=== PATIENT | female | born 1965 | race American Indian/Alaskan Native ===

== ENCOUNTER 2017-01-05 10:46 | Inpatient (IN) | payer MEDICAID ==
[2017-01-05 10:46] VITALS: BMI 51.3
--- NOTE | 2017-01-05 11:09 | C.PDOC ---
History Of Present Illness Patient is a 51 year old female, whose past medical history includes diabetes, and Hidradenitis suppurativa, is sent to the Emergency Department for evaluation of abscess and cellulitis to right axilla. Patient was sent from Dr. Dunn office for ED management and admission. Otherwise, patient denies any sensory changes, headache, fever, chills, or any other associated symptoms at this time. Time Seen by Provider: 01/05/17 11:05 Chief Complaint (Nursing): Medical Clearance History Per: Patient History/Exam Limitations: no limitations Onset/Duration Of Symptoms: Days Current Symptoms Are (Timing): Still Present Severity: Moderate Reports Recently: Treated By A Physician Recent travel outside of the [place]: No Additional History Per: Patient Past Medical History Reviewed: Historical Data, Nursing Documentation, Vital Signs Vital Signs: Last Vital Signs Temp 97.5 F L 01/05/17 10:51 Pulse 102 H 01/05/17 10:51 Resp 20 01/05/17 10:51 BP 133/83 01/05/17 10:51 Pulse Ox 98 01/05/17 11:40 - Medical History PMH: Arthritis, HTN, Hypercholesterolemia Denies: Chronic Kidney Disease - [facility] Procedures DRAINAGE OF LEFT AXILLA, OPEN APPROACH (02/25/16) DRAINAGE OF LEFT AXILLA, OPEN APPROACH, DIAGNOSTIC (02/25/16) DRAINAGE OF R UP ARM SUBCU/FASCIA, OPEN APPROACH (03/05/15) TRANSFER R UP ARM SUBCU/FASCIA W SKIN, SUBCU, OPEN (03/05/15) Family History: States: Unknown Family Hx - Social History Hx Alcohol Use: No Hx Substance Use: No - Immunization History Hx Tetanus Toxoid Vaccination: No Hx Influenza Vaccination: No Hx Pneumococcal Vaccination: No Review Of Systems Except As Marked, All Systems Reviewed And Found Negative. Constitutional: Negative for: Fever, Chills Cardiovascular: Negative for: Chest Pain, Palpitations Respiratory: Negative for: Shortness of Breath Gastrointestinal: Negative for: Nausea, Vomiting Musculoskeletal: Negative for: Neck Pain Skin: Positive for: Other (abscess to right axilla) Neurological: Negative for: Weakness, Numbness, Headache Physical Exam - Physical Exam Appears: Non-toxic, No Acute Distress, Other (morbidly obese) Skin: Warm, Dry, Other (multiple healed incision to bilateral axilla; large tender fluctuant area to right axilla) Head: Atraumatic, Normacephalic Eye(s): bilateral: Normal Inspection Oral Mucosa: Moist Neck: Normal ROM, Supple Cardiovascular: Rhythm Regular, No Murmur Respiratory: Normal Breath Sounds, No Rales, No Rhonchi, No Wheezing Gastrointestinal/Abdominal: Soft, No Tenderness Extremity: Normal ROM, Capillary Refill (<2sec.), No Deformity Neurological/Psych: Oriented x3, Normal Speech, Normal Motor, Normal Sensation ED Course And Treatment O2 Sat by Pulse Oximetry: 98 (RA) Pulse Ox Interpretation: Normal Medical Decision Making Medical Decision Making: Impression: 51 y/o female, with PMHx of Hidradenitis suppurativa, is sent by PMD for evaluation of abscess and cellulitis to right axilla. Plan: * Blood work * EKG * CXR * Admit pt Progress note: On re-evaluation, patient is resting comfortably, no acute distress. Spoke with Dr. Dunn who requested full admission for further management. Patient was admitted to hospital for cellulitis, and abscess. Disposition Discussed With : Malcolm Dunn Doctor Will See Patient In The: Hospital Counseled Patient/Family Regarding: Studies Performed - Disposition Disposition: HOSPITALIZED Disposition Time: 11:15 Condition: STABLE - Clinical Impression Clinical Impression: Axillary abscess, Hidradenitis axillaris - Scribe Statement The provider has reviewed the documentation as recorded by the Clemencia Turcios All medical record entries made by the Layibcary were at my direction and personally dictated by me. I have reviewed the chart and agree that the record accurately reflects my personal performance of the history, physical exam, medical decision making, and the department course for this patient. I have also personally directed, reviewed, and agree with the discharge instructions and disposition. Decision To Admit - Pt Status Changed To: Hospital Disposition Of: Inpatient - Admit Certification Admit to Inpatient:: After my assessment, the patient will require hospitalization for at least two midnights. This is because of the severity of symptoms shown, intensity of services needed, and/or the medical risk in this patient being treated as an outpatient. - InPatient: Physician Admission Certification: I certify that this patient requires 2 or more midnights of care for the following reason:: patient for procedure as per MD - . Bed Request Type: Regular Patient Diagnosis: Axillary abscess, Hidradenitis axillaris
--- NOTE | 2017-01-05 11:29 | RAD ---
HISTORY: OR COMPARISON: None available. TECHNIQUE: Chest, one view. FINDINGS: Examination limited by habitus and hypoinflation. LUNGS: No focal consolidation. Please note that chest x-ray has limited sensitivity for the detection of pulmonary masses. PLEURA: No significant pleural effusion identified. No definite pneumothorax . CARDIOVASCULAR: Heart size appears within normal limits. OSSEOUS STRUCTURES: Mild degenerative changes. VISUALIZED UPPER ABDOMEN: Unremarkable. OTHER FINDINGS: None. IMPRESSION: Limited study. No acute findings.
[2017-01-05 11:54] LABS: BASO # 0.1 K/uL (0.0-0.2); BASO % 0.8 % (0.0-2.0); EOS # 0.2 K/uL (0.0-0.7); LYMPH # 2.4 K/uL (1.0-4.3); LYMPH % 34.1 % (20.0-40.0); MEAN CORPUSCULAR HEMOGLOBIN 27.7 pg (27.0-31.0); MEAN CORPUSCULAR HGB CONC 32.2 g/dL (33.0-37.0); MEAN PLATELET VOLUME 8.2 fL (7.2-11.7); MONO # 0.5 K/uL (0.0-0.8); MONO % 7.7 % (0.0-10.0); NRBC % 0.1 % (0.0-2.0); RED CELL DISTRIBUTION WIDTH 15.5 % (11.5-14.5); WHITE BLOOD COUNT 6.9 K/uL (4.8-10.8)
[2017-01-05 12:02] LABS: CHLORIDE 107 mmol/L (98-107); SODIUM 142 mmol/L (132-148)
[2017-01-05 12:05] LABS: BLOOD UREA NITROGEN 9 mg/dL (7-17); CARBON DIOXIDE 22 mmol/L (22-30); GFR AFRICAN-AMERICAN > 60; INR 1.1
[2017-01-05 12:06] LABS: CALCIUM 9.2 mg/dl (8.6-10.4); GLUCOSE,RANDOM 87 mg/dL (65-105)
[2017-01-05 12:08] LABS: POTASSIUM 4.3 mmol/L (3.6-5.2)
[2017-01-05] MEDS ORDERED: ceFAZolin IV 2 gm in Dextrose 1 GM/50 ML BAG IVPB ONE (13:42)
[2017-01-05] MEDS ORDERED: Bupivacaine HCl 0.25% PF (10 ml) Inj ONE (13:42)
[2017-01-05] MEDS ORDERED: Lidocaine 1% w Epi 1:100,000 Inj ONE (13:42)
[2017-01-05] MEDS ORDERED: Propofol 10 mg/ml Inj (20 ML) ONE ×2 (13:44→14:19)
[2017-01-05] MEDS ORDERED: Midazolam 2 MG/2 ML VIAL ONE (13:44)
[2017-01-05] MEDS ORDERED: Lactated Ringer's 1,000 ML IV ONE (14:00)
[2017-01-05] MEDS ORDERED: Oxycodone/Acetaminophen 5/325 mg Tab PO PRN (14:40)
[2017-01-05] MEDS ORDERED: Dextrose 5%/0.45% NS 1,000 ML IV SCH (14:45)
[2017-01-05] MEDS ORDERED: Morphine 4 MG/ML VIAL ONE (14:58)
--- NOTE | 2017-01-05 16:20 | CP.PCM.CON ---
History of Present Illness - History of Present Illness History of Present Illness: Consult note for Dr. Evans for medical management: 51 year old female with a past medical history of Hidradenitis suppurativa,, CAD , HTN, HLD, DJD, asthma (well controlled) presents S/P drainage of L axillary region by Dr. Dunn. She has no current complaints and states that the pain in her axilla is about a 3/10 post op. She denied Sheikh, change in vision, CP, SOB , numbness or weakness in the extremities. PMhx: CAD, HTN, HLD, DJD, asthma (well controlled), Hidradenitis suppurativa, PShx: abscess drainage Meds: Lipitor 40mg PO day, Topomax 50mg BID, ASA 81mg PO daily, Victoza 1.2 mg sc daily, Coreg 3.125 Allergies: seasonal Fam hx: mother CAD, [place] at , Father CVA Soc hx: smokes 5 cigarettes a day smoked for 20+ years, no ETOH, past heroin user (clean 4 years) PMD: Dr. Fernando Evans Cardiology: Dr. Eisenberg Surg: Dr. Dunn Review of Systems - Constitutional Constitutional: absent: Chills, Fever - EENT Eyes: absent: Blurred Vision, Change in Vision - Cardiovascular Cardiovascular: absent: Chest Pain, Chest Pain at Rest - Respiratory Respiratory: absent: Cough, Dyspnea, Dyspnea on Exertion - Gastrointestinal Gastrointestinal: absent: Abdominal Pain, Constipation, Diarrhea, Nausea, Vomiting - Genitourinary Genitourinary: absent: Change in Urinary Stream, Difficulty Urinating - Musculoskeletal Musculoskeletal: absent: Numbness, Tingling - Integumentary Integumentary: absent: Bleeding Lesions - Neurological Neurological: absent: Dizziness, Weakness Past Patient History - Infectious Disease Hx of Infectious Diseases: None - Tetanus Immunizations Tetanus Immunization: Unknown - Past Medical History & Family History Past Medical History?: Yes - Past Social History Smoking Status: Light Smoker < 10 Cigarettes Daily - CARDIAC Hx Hypercholesterolemia: Yes Hx Hypertension: Yes - PULMONARY Hx Respiratory Disorders: No - NEUROLOGICAL Hx Neurological Disorder: No - HEENT Hx HEENT Problems: No - RENAL Hx Chronic Kidney Disease: No - ENDOCRINE/METABOLIC Hx Endocrine Disorders: Yes Hx Diabetes Mellitus Type 2: Yes - HEMATOLOGICAL/ONCOLOGICAL Hx Blood Disorders: No - INTEGUMENTARY Hx Dermatological Problems: No - MUSCULOSKELETAL/RHEUMATOLOGICAL Hx Arthritis: Yes - GASTROINTESTINAL Hx Gastrointestinal Disorders: No - GENITOURINARY/GYNECOLOGICAL Hx Genitourinary Disorders: No - PSYCHIATRIC Hx Substance Use: No - SURGICAL HISTORY Hx Surgeries: Yes Other/Comment: I&D for abscess in 2015 & 2016. - ANESTHESIA Hx Anesthesia: No Hx Anesthesia Reactions: No Hx Malignant Hyperthermia: No Meds Allergies/Adverse Reactions: Allergies Allergy/AdvReac Type Severity Reaction Status Date / Time No Known Allergies Allergy Verified 02/25/16 08:55 - Medications Medications: Current Medications Docusate Sodium (Colace) 100 mg PO BID [facility] Enoxaparin Sodium (Lovenox) 40 mg SC DAILY [facility] Dextrose/Sodium Chloride (Dextrose 5%/0.45% Ns 1000 Ml) 1,000 mls @ 80 mls/hr IV .[id number] [facility] Doxycycline Hyclate 100 mg/ (Sodium Chloride) 100 mls @ 100 mls/hr IVPB Q12H [facility] Ketorolac Tromethamine (Toradol) 30 mg IVP Q6 PRN PRN Reason: pain 8-10 Stop: 01/10/17 14:41 Morphine Sulfate (Morphine) 1 mg IVP Q10M PRN PRN Reason: Pain, moderate (4-7) Stop: 01/05/17 16:50 Last Admin: 01/05/17 14:58 Dose: 1 mg Ondansetron HCl (Zofran Inj) 4 mg IVP Q6 PRN PRN Reason: Nausea/Vomiting Oxycodone/Acetaminophen (Percocet 5/325 Mg Tab) 2 tab PO Q4H PRN PRN Reason: pain Stop: 01/08/17 14:41 Pantoprazole Sodium (Protonix Inj) 40 mg IVP DAILY [facility] Physical Exam - Constitutional Appears: Non-toxic, No Acute Distress - Head Exam Head Exam: ATRAUMATIC, NORMAL INSPECTION - Eye Exam Eye Exam: EOMI, Normal appearance, PERRL Pupil Exam: NORMAL ACCOMODATION - ENT Exam ENT Exam: Mucous Membranes Moist - Respiratory Exam Respiratory Exam: Clear to Auscultation Bilateral, NORMAL BREATHING PATTERN. absent: Accessory Muscle Use, Rales, Rhonchi, Wheezes, Respiratory Distress - Cardiovascular Exam Cardiovascular Exam: REGULAR RHYTHM, +S1, +S2 - GI/Abdominal Exam GI & Abdominal Exam: Hypoactive Bowel Sounds, Soft. absent: Distended, Firm, Guarding, Tenderness - Extremities Exam Extremities exam: Positive for: normal inspection. Negative for: calf tenderness, pedal edema - Back Exam Back exam: NORMAL INSPECTION. absent: CVA tenderness (L), CVA tenderness (R), paraspinal tenderness - Neurological Exam Neurological exam: Alert, CN II-XII Intact, Normal Gait, Oriented x3 - Psychiatric Exam Psychiatric exam: Normal Affect, Normal Mood - Skin Skin Exam: Dry, Intact, Normal Color, Warm Results - Vital Signs Recent Vital Signs: Last Vital Signs Temp 97.5 F L 01/05/17 14:40 Pulse 84 01/05/17 15:45 Resp 15 01/05/17 15:45 BP 125/75 01/05/17 15:45 Pulse Ox 100 01/05/17 15:45 - Labs Result Diagrams: 01/05/17 11:50 01/05/17 11:50 Labs: Laboratory Results - last 24 hr 01/05/17 01/05/17 01/05/17 11:50 11:50 11:50 WBC 6.9 RBC 4.42 Hgb 12.2 Hct 38.0 MCV 86.0 MCH 27.7 MCHC 32.2 L RDW 15.5 H Plt Count 304 MPV 8.2 Neut % (Auto) 54.4 Lymph % (Auto) 34.1 [place] % (Auto) 7.7 Eos % (Auto) 3.0 Baso % (Auto) 0.8 Neut # 3.8 Lymph # 2.4 [place] # 0.5 Eos # 0.2 Baso # 0.1 PT 12.1 INR 1.1 APTT 39 H Sodium 142 Potassium 4.3 Chloride 107 Carbon Dioxide 22 Anion Gap 17 BUN 9 Creatinine 0.7 Est GFR ( Amer) > 60 Est GFR (Non-Af Amer) > 60 Random Glucose 87 Calcium 9.2 Assessment & Plan - Assessment and Plan (Free Text) Assessment: Axillary abscess/Hidradenitis suppurativa Assessment & Plan: Pt s/p ID with Dr. Dunn 01/05 management as per surgery Plan for OR again Wed pain controled on perocet 5/325 PO Q 4Hr d51/2NS Toradol and Morphibine for pain zofran prn Doxycycline 100mg IVPB Q12 - started 01/05 Status: Acute CAD (coronary artery disease) Assessment & Plan: patient without history of stents holding asprin for the OR continue coreg 3.125 mg PO BID crestor 20mg PO HS heart healthy diet Status: Chronic DM Assessment & Plan: accuchecks ACHS ISS CC diet Hold home dose Victoza Status: Chronic HTN (hypertension) Assessment & Plan: heart healthy diet continue home medication: coreg 3.125 PO BID (Hold SBP <100 and Hr < 60) Status: Chronic Hyperlipidemia Assessment & Plan: continue crestor 20mg Status: Chronic DJD (degenerative joint disease) Assessment & Plan: continue to hold NSAIDs, hold flexeril Status: Chronic Asthma Assessment & Plan: albuterol prn sob Status: Chronic Prophylactic measure Assessment & Plan: SCDs Pepcid 40mg IVP daily Lovenox 40mg SC daily Colace 100mg PO BID Status: Acute
[2017-01-05] MEDS ORDERED: Albuterol 0.083% Inhal Sol (2.5 mg/3 mL) UD INH PRN (16:26)
--- NOTE | 2017-01-05 16:26 | OP ---
PROCEDURE DATE: 01/05/2017 PREOPERATIVE DIAGNOSIS: Infected mass of the right axilla. POSTOPERATIVE DIAGNOSIS: Infected mass of the right axilla. PROCEDURE PERFORMED: Wide deep excision of infected mass in the right axilla with partial tissue transfer closure. SURGEON: Dr. Dunn. ANESTHESIA: General. BLOOD LOSS: 30 mL. POSTOPERATIVE CONDITION: Stable. INDICATIONS FOR SURGERY: This is a 51-year-old female presents with a draining infected mass of the right axilla, who now undergo wide deep excision. DESCRIPTION OF PROCEDURE: The patient was taken to the operating room. General anesthesia was administered. The right arm was extended, exposed the axilla, and the axilla was prepped and draped. A generous elliptical incision was made surrounding the mass. It was dissected free and debrided down to good clean axillary tissue. Bleeding was controlled using the Bovie. A deep axillary blood vessel was repaired. The wound was irrigated with copious amounts of saline solution. A partial tissue transverse closure was performed at the periphery and central portion of the wound was packed up with a wet saline gauze. The patient tolerated the procedure well and returned to recovery room in stable condition. Malcolm Dunn MD
[2017-01-05] MEDS ORDERED: Dextrose 5%/0.45% NS 1,000 ML IV ONE (16:30)
[2017-01-05] MEDS: Sodium Chloride 0.45% 1,000 ML IV SCH (22:00)
[2017-01-05] MEDS: (Novolin R) Insulin Human Regular 100 units/ml vial SC SCH (22:03)
[2017-01-06 07:23] LABS: BASO # 0.1 K/uL (0.0-0.2); BASO % 0.8 % (0.0-2.0); EOS # 0.3 K/uL (0.0-0.7); EOS % 3.5 % (0.0-4.0); HEMATOCRIT 36.7 % (34.0-47.0); LYMPH % 38.6 % (20.0-40.0); MEAN CORPUSCULAR HEMOGLOBIN 27.7 pg (27.0-31.0); MEAN CORPUSCULAR HGB CONC 32.1 g/dL (33.0-37.0); MEAN PLATELET VOLUME 8.3 fL (7.2-11.7); MONO # 0.6 K/uL (0.0-0.8); MONO % 7.2 % (0.0-10.0); RED CELL DISTRIBUTION WIDTH 15.3 % (11.5-14.5); WHITE BLOOD COUNT 7.7 K/uL (4.8-10.8)
[2017-01-06] MEDS: (Novolin R) Insulin Human Regular 100 units/ml vial SC SCH ×4 (08:00→22:19)
[2017-01-06 08:03] LABS: CHLORIDE 105 mmol/L (98-107); POTASSIUM 3.7 mmol/L (3.6-5.2); SODIUM 140 mmol/L (132-148)
[2017-01-06 08:05] LABS: ALB/GLOB RATIO 0.9 (1.0-2.1); ALKALINE PHOSPHATASE 87 U/L (38-126); AST/SGOT 24 U/L (14-36); BILIRUBIN,TOTAL 0.5 mg/dL (0.2-1.3); CARBON DIOXIDE 22 mmol/L (22-30); GFR AFRICAN-AMERICAN > 60; TOTAL PROTEIN 7.2 g/dL (6.3-8.3)
[2017-01-06 08:06] LABS: ALT/SGPT 24 U/L (9-52); BLOOD UREA NITROGEN 8 mg/dL (7-17); CALCIUM 8.7 mg/dl (8.6-10.4); GLUCOSE,RANDOM 88 mg/dL (65-105); MAGNESIUM 1.5 mg/dL (1.6-2.3)
--- NOTE | 2017-01-06 08:11 | CARD ---
APPROVED REPORT EKG Measurement Heart [id number] <Conclusion> Sinus rhythm with occasional premature ventricular complexes Prolonged QT Abnormal ECG
[2017-01-06] MEDS: Enoxaparin 40 mg Syringe SC SCH (09:28)
[2017-01-06] MEDS: Sodium Chloride 0.45% 1,000 ML IV SCH ×2 (09:34→23:23)
[2017-01-06] MEDS ORDERED: Magnesium Sulfate 1 gm in D5W 1 GM/100 ML BAG IVPB ONE (09:48)
--- NOTE | 2017-01-06 11:05 | CP.PCM.PN ---
Subjective - Date & Time of Evaluation Date of Evaluation: 01/06/17 Time of Evaluation: 07:25 - Subjective Subjective: PGY-[address] Evans Patient seen and examined at bedside. No acute events overnight. Patient reports to have pain in her right axilla region. Patient is aware of OR on Thursday. She denies having headache, fever, chills, shortness of breath, chest pain, nausea, vomiting, or diarrhea. Objective - Vital Signs/Intake and Output Vital Signs (last 24 hours): Temp Pulse Resp BP Pulse Ox 97 F L 90 20 115/77 96 01/06/17 07:57 01/06/17 07:57 01/06/17 07:57 01/06/17 07:57 01/06/17 07:57 Intake and Output: 01/06/17 01/06/17 06:59 18:59 Intake Total 640 Balance 640 - Medications Medications: Current Medications Albuterol Sulfate (Albuterol 0.083% Inhal Joan (2.5 Mg/3 Ml) Ud) 2.5 mg INH RQ6 PRN PRN Reason: Shortness of Breath Docusate Sodium (Colace) 100 mg PO BID [facility] Last Admin: 01/06/17 09:28 Dose: 100 mg Enoxaparin Sodium (Lovenox) 40 mg SC DAILY [facility] Last Admin: 01/06/17 09:28 Dose: 40 mg Doxycycline Hyclate 100 mg/ (Sodium Chloride) 100 mls @ 100 mls/hr IVPB Q12H [facility] Last Admin: 01/06/17 05:12 Dose: 100 mls/hr Sodium Chloride (Sodium Chloride 0.45%) 1,000 mls @ 80 mls/hr IV .[id number] [facility] Last Admin: 01/06/17 09:34 Dose: 80 mls/hr Insulin Human Regular (Novolin R) 0 unit SC ACHS [facility] PRN Reason: Protocol Last Admin: 01/06/17 08:00 Dose: Not Given Ketorolac Tromethamine (Toradol) 30 mg IVP Q6 PRN PRN Reason: pain 8-10 Stop: 01/10/17 14:41 Ondansetron HCl (Zofran Inj) 4 mg IVP Q6 PRN PRN Reason: Nausea/Vomiting Oxycodone/Acetaminophen (Percocet 5/325 Mg Tab) 2 tab PO Q4H PRN PRN Reason: pain Stop: 01/08/17 14:41 Last Admin: 01/05/17 22:00 Dose: 2 tab Pantoprazole Sodium (Protonix Inj) 40 mg IVP DAILY [facility] Last Admin: 01/06/17 09:28 Dose: 40 mg Pneumococcal Polyvalent Vaccine (Pneumovax 23 Vaccine) 0.5 ml IM .ONCE ONE Stop: 01/08/17 10:01 - Labs Labs: 01/06/17 07:08 01/06/17 07:08 PT 12.1 SECONDS (9.7-12.2) 01/05/17 11:50 INR 1.1 01/05/17 11:50 APTT 39 SECONDS (21-34) H 01/05/17 11:50 - Constitutional Appears: Non-toxic, No Acute Distress - Head Exam Head Exam: ATRAUMATIC, NORMAL INSPECTION - Eye Exam Eye Exam: EOMI, Normal appearance - ENT Exam ENT Exam: Mucous Membranes Moist - Neck Exam Neck Exam: Normal Inspection - Respiratory Exam Respiratory Exam: Clear to Ausculation Bilateral, NORMAL BREATHING PATTERN. absent: Respiratory Distress - Cardiovascular Exam Cardiovascular Exam: REGULAR RHYTHM, +S1, +S2 - GI/Abdominal Exam GI & Abdominal Exam: Soft, Normal Bowel Sounds - Extremities Exam Extremities Exam: Normal Inspection - Back Exam Back Exam: NORMAL INSPECTION - Neurological Exam Neurological Exam: Alert, Awake, Oriented x3 - Psychiatric Exam Psychiatric exam: Normal Affect, Normal Mood - Skin Skin Exam: Dry, Intact, Normal Color, Warm Assessment and Plan - Assessment and Plan (Free Text) Assessment: Axillary abscess/Hidradenitis suppurativa S/P I&D POD#[address] Dunn management as per surgery Plan for OR again Wed pain controlled with toradol 30mg IV Q6hr and perocet 5/325 PO Q 4Hr 1/2NS @80ml/hr Doxycycline 100mg IVPB Q12 - started 01/05 CAD (coronary artery disease) patient without history of stents holding asprin for the OR continue coreg 3.125 mg PO BID crestor 20mg PO HS heart healthy diet Hypomagnesiunemia Magnesium 1.9 Supplement as needed DM accuchecks ACHS ISS CC diet Hold home dose Victoza HTN (hypertension) heart healthy diet continue home medication: coreg 3.125 PO BID (Hold SBP <100 and Hr < 60) Hyperlipidemia continue crestor 20mg DJD (degenerative joint disease) continue to hold NSAIDs, hold flexeril Asthma albuterol prn sob Prophylactic measure SCDs Pepcid 40mg IVP daily Lovenox 40mg SC daily zofran prn Colace 100mg PO BID Discussed with attending Dr. Evans
[2017-01-07] MEDS: (Novolin R) Insulin Human Regular 100 units/ml vial SC SCH ×4 (07:16→22:02)
[2017-01-07 08:01] LABS: BASO # 0.1 K/uL (0.0-0.2); EOS # 0.2 K/uL (0.0-0.7); EOS % 2.8 % (0.0-4.0); HEMATOCRIT 36.5 % (34.0-47.0); LYMPH # 2.6 K/uL (1.0-4.3); LYMPH % 35.8 % (20.0-40.0); MEAN CELL VOLUME 86.5 fL (81.0-99.0); MEAN CORPUSCULAR HEMOGLOBIN 27.9 pg (27.0-31.0); MEAN CORPUSCULAR HGB CONC 32.3 g/dL (33.0-37.0); MEAN PLATELET VOLUME 8.4 fL (7.2-11.7); MONO # 0.6 K/uL (0.0-0.8); MONO % 8.1 % (0.0-10.0); RED CELL DISTRIBUTION WIDTH 15.4 % (11.5-14.5); WHITE BLOOD COUNT 7.4 K/uL (4.8-10.8)
[2017-01-07 08:06] LABS: CHLORIDE 108 mmol/L (98-107)
[2017-01-07 08:07] LABS: POTASSIUM 4.2 mmol/L (3.6-5.2); SODIUM 141 mmol/L (132-148)
[2017-01-07 08:09] LABS: ALB/GLOB RATIO 0.9 (1.0-2.1); ALKALINE PHOSPHATASE 82 U/L (38-126); AST/SGOT 22 U/L (14-36); BILIRUBIN,TOTAL 0.5 mg/dL (0.2-1.3); BLOOD UREA NITROGEN 9 mg/dL (7-17); CARBON DIOXIDE 24 mmol/L (22-30); GFR AFRICAN-AMERICAN > 60; GLUCOSE,RANDOM 91 mg/dL (65-105); TOTAL PROTEIN 7.2 g/dL (6.3-8.3)
[2017-01-07 08:10] LABS: ALT/SGPT 26 U/L (9-52); CALCIUM 8.8 mg/dl (8.6-10.4)
--- NOTE | 2017-01-07 08:36 | CP.PCM.PN ---
Subjective - Date & Time of Evaluation Date of Evaluation: 01/07/17 Time of Evaluation: 07:50 - Subjective Subjective: PGY-2 Resident Progress Note for Dr. Evans Patient seen and examined at bedside. No acute events overnight. Patient is placed on NPO for OR this afternoon. Patient is resting comfortably in bed with no distress. Patient denies headache, fever, chills, shortness of breath, chest pain, nausea, or vomiting. Objective - Vital Signs/Intake and Output Vital Signs (last 24 hours): Temp Pulse Resp BP Pulse Ox 98.5 F 88 20 118/82 98 01/07/17 08:10 01/07/17 08:10 01/07/17 08:10 01/07/17 08:10 01/07/17 08:10 Intake and Output: 01/07/17 01/07/17 06:59 18:59 Intake Total 1280 Balance 1280 - Medications Medications: Current Medications Albuterol Sulfate (Albuterol 0.083% Inhal Joan (2.5 Mg/3 Ml) Ud) 2.5 mg INH RQ6 PRN PRN Reason: Shortness of Breath Docusate Sodium (Colace) 100 mg PO BID [facility] Last Admin: 01/06/17 17:39 Dose: Not Given Enoxaparin Sodium (Lovenox) 40 mg SC DAILY [facility] Last Admin: 01/06/17 09:28 Dose: 40 mg Doxycycline Hyclate 100 mg/ (Sodium Chloride) 100 mls @ 100 mls/hr IVPB Q12H [facility] Last Admin: 01/07/17 05:18 Dose: 100 mls/hr Sodium Chloride (Sodium Chloride 0.45%) 1,000 mls @ 80 mls/hr IV .[id number] [facility] Last Admin: 01/06/17 23:23 Dose: Not Given Insulin Human Regular (Novolin R) 0 unit SC ACHS [facility] PRN Reason: Protocol Last Admin: 01/07/17 07:16 Dose: Not Given Ketorolac Tromethamine (Toradol) 30 mg IVP Q6 PRN PRN Reason: pain 8-10 Stop: 01/10/17 14:41 Ondansetron HCl (Zofran Inj) 4 mg IVP Q6 PRN PRN Reason: Nausea/Vomiting Oxycodone/Acetaminophen (Percocet 5/325 Mg Tab) 2 tab PO Q4H PRN PRN Reason: pain Stop: 01/08/17 14:41 Last Admin: 01/05/17 22:00 Dose: 2 tab Pantoprazole Sodium (Protonix Inj) 40 mg IVP DAILY [facility] Last Admin: 01/06/17 09:28 Dose: 40 mg Pneumococcal Polyvalent Vaccine (Pneumovax 23 Vaccine) 0.5 ml IM .ONCE ONE Stop: 01/08/17 10:01 - Labs Labs: 01/07/17 07:40 01/07/17 07:40 PT 12.1 SECONDS (9.7-12.2) 01/05/17 11:50 INR 1.1 01/05/17 11:50 APTT 39 SECONDS (21-34) H 01/05/17 11:50 - Constitutional Appears: Non-toxic, No Acute Distress - Head Exam Head Exam: ATRAUMATIC, NORMAL INSPECTION - Eye Exam Eye Exam: EOMI, Normal appearance - ENT Exam ENT Exam: Mucous Membranes Moist - Neck Exam Neck Exam: Normal Inspection - Respiratory Exam Respiratory Exam: Clear to Ausculation Bilateral, NORMAL BREATHING PATTERN. absent: Respiratory Distress - Cardiovascular Exam Cardiovascular Exam: REGULAR RHYTHM, +S1, +S2. absent: Murmur - GI/Abdominal Exam GI & Abdominal Exam: Soft, Normal Bowel Sounds. absent: Tenderness - Extremities Exam Extremities Exam: Normal Capillary Refill. absent: Joint Swelling, Pedal Edema Additional comments: Right axilla wound dress clean, dry and intact. No active drainage. - Neurological Exam Neurological Exam: Alert, Awake, Oriented x3 - Psychiatric Exam Psychiatric exam: Normal Affect, Normal Mood - Skin Skin Exam: Dry, Warm Assessment and Plan - Assessment and Plan (Free Text) Assessment: Axillary abscess/Hidradenitis suppurativa S/P debridement, redraining and closure of right axillary wound POD#[address] Dunn management as per surgery Plan for discharge 01/08/17 pain controlled with perocet 5/325 PO Q 4Hr 1/2NS @80ml/hr Doxycycline 100mg IVPB Q12 - started 01/05 Follow up wound culture CAD (coronary artery disease) patient without history of stents holding asprin for the OR continue coreg 3.125 mg PO BID crestor 20mg PO HS heart healthy diet Hypomagnesiunemia, resolved Supplement as needed DM accuchecks ACHS ISS CC diet Hold home dose Victoza HTN (hypertension) heart healthy diet continue home medication: coreg 3.125 PO BID (Hold SBP <100 and Hr < 60) Hyperlipidemia continue crestor 20mg DJD (degenerative joint disease) continue to hold NSAIDs, hold flexeril Asthma albuterol prn sob Prophylactic measure SCDs Protonix Lovenox zofran prn Colace Discussed with attending Dr. Evans
--- NOTE | 2017-01-07 08:42 | CON ---
HISTORY OF PRESENT ILLNESS: A 51-year-old female status post abscess of right axilla. The patient came to the ER. The patient admitted with anxiety and depression. The patient has diabetes. The patient lives with her children. PHYSICAL EXAMINATION: GENERAL: The patient is awake, alert and oriented. VITAL SIGNS: Temperature 98, pulse 90. HEENT: Within normal limits. CHEST: Symmetrical. HEART: Regular. ABDOMEN: Soft. EXTREMITIES: Abscess of the right axilla. IMPRESSION AND PLAN: Hidradenitis, diabetes, and obesity. The patient need IV antibiotics and continue diabetic medication. Scout Evans MD
[2017-01-07] MEDS: Enoxaparin 40 mg Syringe SC SCH (09:38)
[2017-01-07] MEDS: Sodium Chloride 0.45% 1,000 ML IV SCH ×2 (11:43→21:22)
[2017-01-07] MEDS ORDERED: Propofol 10 mg/ml Inj (20 ML) ONE (12:07)
[2017-01-07] MEDS ORDERED: Lactated Ringer's 1,000 ML IV ONE (12:45)
[2017-01-07] MEDS ORDERED: Midazolam 2 MG/2 ML VIAL ONE (12:50)
[2017-01-07] MEDS ORDERED: Bacitracin Ointment 30 GM TUBE ONE (13:26)
[2017-01-07] MEDS ORDERED: HYDROmorphone 0.5 mg/0.5 ml ISec ONE (13:43)
[2017-01-07] MEDS ORDERED: HYDROmorphone 0.5 mg/0.5 ml ISec IVP PRN (13:46)
[2017-01-07 16:06] VITALS: RESP 20
[2017-01-08] MEDS: Sodium Chloride 0.45% 1,000 ML IV SCH
--- NOTE | 2017-01-08 01:03 | OP ---
PROCEDURE DATE: 01/07/2017 PREOPERATIVE DIAGNOSIS: Infected abscess cavity of right axilla. POSTOPERATIVE DIAGNOSIS: Infected abscess cavity of right axilla. PROCEDURE PERFORMED: Redrainage of right axillary abscess with debridement, repair of axillary blood vessel and adjacent tissue with transverse closure. SURGEON: Eliu Arrington MD. TYPE OF ANESTHESIA: General. ESTIMATED BLOOD LOSS: 20 mL. POSTOPERATIVE CONDITION: Stable. INDICATIONS FOR SURGERY: This is a 51-year-old female status post incision and drainage of a large right axillary abscess two days ago. She is taken back to the OR under anesthesia for debridement and get final closure of the wound. DESCRIPTION OF PROCEDURE: The patient was taken to the operating room. General anesthesia was administered. The right arm was extended and the right axilla was prepped and draped. The wound was reopened and aggressively debrided. Bleeding was controlled with the use of the Bovie and a large axillary blood vessel was repaired. The wound was then pulse irrigated with saline and Kantrex solution and closed the adjacent tissue in a transverse closure by widely immobilizing and using multiple layers of Monocryl and subcuticular Monocryl. The patient tolerated the procedure well and returned to recovery room in stable condition. Malcolm Dunn MD
[2017-01-08 07:21] LABS: BASO % 0.5 % (0.0-2.0); EOS # 0.2 K/uL (0.0-0.7); EOS % 3.4 % (0.0-4.0); HEMATOCRIT 34.4 % (34.0-47.0); LYMPH # 2.3 K/uL (1.0-4.3); LYMPH % 32.5 % (20.0-40.0); MEAN CELL VOLUME 85.7 fL (81.0-99.0); MEAN CORPUSCULAR HGB CONC 32.7 g/dL (33.0-37.0); MEAN PLATELET VOLUME 8.7 fL (7.2-11.7); MONO # 0.6 K/uL (0.0-0.8); MONO % 7.9 % (0.0-10.0); NRBC % 0.3 % (0.0-2.0); RED CELL DISTRIBUTION WIDTH 15.2 % (11.5-14.5); WHITE BLOOD COUNT 7.1 K/uL (4.8-10.8)
[2017-01-08 07:30] VITALS: BP 107/71; PULSE 95; TEMP 98.3; O2SAT 97
[2017-01-08 07:50] LABS: ALB/GLOB RATIO 0.8 (1.0-2.1); ALKALINE PHOSPHATASE 87 U/L (38-126); ALT/SGPT 26 U/L (9-52); AST/SGOT 21 U/L (14-36); BILIRUBIN,TOTAL 0.5 mg/dL (0.2-1.3); BLOOD UREA NITROGEN 7 mg/dL (7-17); CALCIUM 8.7 mg/dl (8.6-10.4); CARBON DIOXIDE 23 mmol/L (22-30); CHLORIDE 106 mmol/L (98-107); GFR AFRICAN-AMERICAN > 60; GLUCOSE,RANDOM 95 mg/dL (65-105); SODIUM 142 mmol/L (132-148); TOTAL PROTEIN 7.2 g/dL (6.3-8.3)
[2017-01-08] MEDS: (Novolin R) Insulin Human Regular 100 units/ml vial SC SCH ×2 (08:02→11:32)
[2017-01-08] MEDS ORDERED: Pneumococcal 23-Valent Vaccine IM ONE (10:00)
--- NOTE | 2017-01-08 10:01 | CP.PCM.PN ---
Subjective - Date & Time of Evaluation Date of Evaluation: 01/08/17 Time of Evaluation: 07:00 - Subjective Subjective: PGY-2 Resident Progress Note for Dr. vEans Patient seen and examined at bedside. No acute events overnight. Patient is resting comfortably in bed with no distress. Denies pain. Patient denies headache, fever, chills, shortness of breath, chest pain, nausea, or vomiting. Tolerating diet. She states she feels great and is eager to be discharged home today. Objective - Vital Signs/Intake and Output Vital Signs (last 24 hours): Temp Pulse Resp BP Pulse Ox 98.3 F 95 H 20 107/71 97 01/08/17 07:27 01/08/17 07:27 01/08/17 07:27 01/08/17 07:27 01/08/17 07:27 Intake and Output: 01/08/17 01/08/17 06:59 18:59 Intake Total 1790 Balance 1790 - Medications Medications: Current Medications Albuterol Sulfate (Albuterol 0.083% Inhal Joan (2.5 Mg/3 Ml) Ud) 2.5 mg INH RQ6 PRN PRN Reason: Shortness of Breath Docusate Sodium (Colace) 100 mg PO BID [facility] Last Admin: 01/07/17 17:50 Dose: 100 mg Enoxaparin Sodium (Lovenox) 40 mg SC DAILY [facility] Last Admin: 01/07/17 09:38 Dose: Not Given Doxycycline Hyclate 100 mg/ (Sodium Chloride) 100 mls @ 100 mls/hr IVPB Q12H [facility] Last Admin: 01/08/17 05:21 Dose: 100 mls/hr Sodium Chloride (Sodium Chloride 0.45%) 1,000 mls @ 80 mls/hr IV .[id number] [facility] Last Admin: 01/08/17 00:00 Dose: Not Given Insulin Human Regular (Novolin R) 0 unit SC ACHS [facility] PRN Reason: Protocol Last Admin: 01/08/17 08:02 Dose: Not Given Ondansetron HCl (Zofran Inj) 4 mg IVP Q6 PRN PRN Reason: Nausea/Vomiting Oxycodone/Acetaminophen (Percocet 5/325 Mg Tab) 2 tab PO Q4H PRN PRN Reason: pain Stop: 01/08/17 14:41 Last Admin: 01/05/17 22:00 Dose: 2 tab Pantoprazole Sodium (Protonix Inj) 40 mg IVP DAILY [facility] Last Admin: 01/07/17 10:06 Dose: 40 mg Pneumococcal Polyvalent Vaccine (Pneumovax 23 Vaccine) 0.5 ml IM .ONCE ONE Stop: 01/08/17 10:01 - Labs Labs: 01/08/17 06:35 01/08/17 06:32 PT 12.1 SECONDS (9.7-12.2) 01/05/17 11:50 INR 1.1 01/05/17 11:50 APTT 39 SECONDS (21-34) H 01/05/17 11:50 - Constitutional Appears: Non-toxic, No Acute Distress - Head Exam Head Exam: ATRAUMATIC, NORMAL INSPECTION - Eye Exam Eye Exam: EOMI, Normal appearance, PERRL Pupil Exam: NORMAL ACCOMODATION - ENT Exam ENT Exam: Mucous Membranes Moist - Respiratory Exam Respiratory Exam: Clear to Ausculation Bilateral, Respiratory Distress, NORMAL BREATHING PATTERN - Cardiovascular Exam Cardiovascular Exam: REGULAR RHYTHM, +S1, +S2 - GI/Abdominal Exam GI & Abdominal Exam: Soft, Normal Bowel Sounds. absent: Distended, Firm, Guarding, Tenderness Additional comments: obese - Extremities Exam Extremities Exam: Normal Inspection - Back Exam Back Exam: NORMAL INSPECTION - Neurological Exam Neurological Exam: Alert, Awake, CN II-XII Intact, Normal Gait, Oriented x3 - Psychiatric Exam Psychiatric exam: Normal Affect, Normal Mood - Skin Skin Exam: Dry, Intact, Normal Color, Warm Assessment and Plan - Assessment and Plan (Free Text) Assessment: Patient is stable for DC today per Dr. Dunn who has already placed the DC order. Patient states she does not need any of her home medications refilled. She was instructed to follow up with her primary care within 1 week of discharge for post hospital care. She is also to follow up with Dr. Dunn and follow his post surgical instruction as ordered. Axillary abscess/Hidradenitis suppurativa S/P debridement, redraining and closure of right axillary wound POD#[address] Dunn management as per surgery Plan for discharge 01/08/17 pain controlled with perocet 5/325 PO Q 4Hr 1/2NS @80ml/hr Doxycycline 100mg IVPB Q12 - started 01/05 Follow up wound culture CAD (coronary artery disease) patient without history of stents holding asprin for the OR continue coreg 3.125 mg PO BID crestor 20mg PO HS heart healthy diet Hypomagnesiunemia, resolved Supplement as needed DM accuchecks ACHS ISS CC diet Hold home dose Victoza HTN (hypertension) heart healthy diet continue home medication: coreg 3.125 PO BID (Hold SBP <100 and Hr < 60) Hyperlipidemia continue crestor 20mg DJD (degenerative joint disease) continue to hold NSAIDs, hold flexeril Asthma albuterol prn sob Prophylactic measure SCDs Protonix Lovenox zofran prn Colace Discussed with attending Dr. Evans
[2017-01-08] MEDS: Enoxaparin 40 mg Syringe SC SCH (11:37)
== END 2017-01-08 12:35 | disposition home or self-care (01) | DRG 264 ==
LOC: C.ER 10:46 → C.9E 11:16 → C.3T 19:59
PROVIDERS: ADMIT Surgery; ATTEND Surgery
PROC: 0JXD0ZZ Transfer Right Upper Arm Subcutaneous Tissue and Fascia, Open Approach (ICD-10-PCS; 2017-01-05)
PROC: 05Q Upper Veins, Repair (ICD-10-PCS; 2017-01-05)
PROC: 0JBD0ZZ Excision of Right Upper Arm Subcutaneous Tissue and Fascia, Open Approach (ICD-10-PCS; principal; 2017-01-05 14:15)
PROC: 0JBD0ZZ Excision of Right Upper Arm Subcutaneous Tissue and Fascia, Open Approach (ICD-10-PCS; 2017-01-07)
PROC: 0JXD0ZZ Transfer Right Upper Arm Subcutaneous Tissue and Fascia, Open Approach (ICD-10-PCS; 2017-01-07)
PROC: 05Q Upper Veins, Repair (ICD-10-PCS; 2017-01-07)
DX: L02.411 Cutaneous abscess of right axilla (principal); I10 Essential (primary) hypertension; E11.9 Type 2 diabetes mellitus without complications; L73.2 Hidradenitis suppurativa; M19.90 Unspecified osteoarthritis, unspecified site; E78.00 Pure hypercholesterolemia, unspecified; J45.909 Unspecified asthma, uncomplicated; I25.10 Atherosclerotic heart disease of native coronary artery without angina pectoris; E78.5 Hyperlipidemia, unspecified; F17.210 Nicotine dependence, cigarettes, uncomplicated